=== PATIENT | female | born 1990 | race Caucasian/White ===

== ENCOUNTER 2020-04-19 20:53 | Outpatient (CLI) | payer MEDICAID ==
[2020-04-19 21:25] LABS: ABSOLUTE BASOPHILS # (AUTO) 0.1 10^3/uL (0.0-0.2); ABSOLUTE LYMPHOCYTES (AUTO) 4.3 10^3/uL (0.5-4.7); ABSOLUTE MONOCYTES (AUTO) 0.9 10^3/uL (0.1-1.4); ABSOLUTE NEUT (AUTO) 9.9 10^3/uL (1.7-8.2); BASOPHILS % (AUTO) 0.4 % (0-2); EOSINOPHILS % (AUTO) 0.3 % (0-6); HEMATOCRIT 35.3 % (36.0-47.0); HEMOGLOBIN 12.2 g/dL (12.0-15.5); LYMPHOCYTES % (AUTO) 28.5 % (13-45); MEAN CORPUSCULAR HEMOGLOBIN 31.9 pg (27.0-33.4); MEAN CORPUSCULAR HGB CONC 34.6 g/dL (32.0-36.0); MEAN CORPUSCULAR VOLUME 92 fl (80-97); MONOCYTES % (AUTO) 5.8 % (3-13); PLATELET COUNT 287 10^3/uL (150-450); RED BLOOD COUNT 3.82 10^6/uL (3.72-5.28); RED CELL DISTRIBUTION WIDTH 14.6 % (11.5-14.0); TOTAL CELLS COUNTED % (AUTO) 100 %; WHITE BLOOD COUNT 15.2 10^3/uL (4.0-10.5)
[2020-04-19 21:43] LABS: APPEARANCE,URINE SLIGHTLY-CLOUDY; BILIRUBIN,URINE NEGATIVE (NEGATIVE); CALCIUM OXALATE CRYSTALS,URINE MANY /HPF; COLOR,URINE YELLOW; GLUCOSE, URINE NEGATIVE (NEGATIVE); KETONES,URINE TRACE mg/dL (NEGATIVE); LEUKOCYTE ESTERASE,URINE NEGATIVE (NEGATIVE); NITRITE,URINE NEGATIVE (NEGATIVE); PROTEIN,URINE 30 mg/dL (NEGATIVE); URINE SPECIFIC GRAVITY 1.023; UROBILINOGEN,URINE NEGATIVE mg/dL (<2.0)
[2020-04-19 21:48] LABS: ALBUMIN 3.5 g/dL (3.5-5.0); ALKALINE PHOSPHATASE 103 U/L (38-126); ANION GAP 6 (5-19); ASPARTATE AMINO TRANSFERASE 32 U/L (14-36); BILIRUBIN,TOTAL 0.3 mg/dL (0.2-1.3); BLOOD UREA NITROGEN 6 mg/dL (7-20); CALCIUM 9.5 mg/dL (8.4-10.2); CARBON DIOXIDE 22 mmol/L (22-30); CHLORIDE 106 mmol/L (98-107); GLUCOSE 93 mg/dL (75-110); POTASSIUM 3.8 mmol/L (3.6-5.0); TOTAL PROTEIN 6.5 g/dL (6.3-8.2)
[2020-04-19 22:01] LABS: URINE AMPHETAMINES SCREEN NEGATIVE; URINE BARBITURATES SCREEN NEGATIVE; URINE BENZODIAZEPINES SCREEN NEGATIVE; URINE COCAINE SCREEN NEGATIVE; URINE MARIJUANA (THC) SCREEN NEGATIVE; URINE METHADONE SCREEN NEGATIVE; URINE PHENCYCLIDINE SCREEN NEGATIVE
[2020-04-19 22:03] LABS: UR PRO/CREAT RATIO RESULT 0.1 mg/mg (0.0-0.2); URINE PROTEIN 22.1 mg/dL (<12)
== END 2020-04-19 22:46 | disposition home or self-care (01) ==
LOC: LC 20:53
PROVIDERS: ATTEND Student in an Organized Health Care Education/Training Program
DX: O16.3 Unspecified maternal hypertension, third trimester (principal); Z3A.37 37 weeks gestation of pregnancy; Z87.891 Personal history of nicotine dependence
CPT/HCPCS: 36415; 59025; 80053; 80307; 81001; 82570; 83615; 84112; 84156; 84550; 85025

== ENCOUNTER 2020-04-23 11:39 | Outpatient (CLI) | payer MEDICAID ==
--- NOTE | 2020-04-23 11:57 | Non Stress Test Report ---
Non Stress Test Datetime Report Generated by CPN: 04/23/2020 11:57 DEMOGRAPHIC Test Number: 1 EGA NST: 37.2 INDICATION Indication for Study (NST) Other: labor check for preeclampsia workup URINE RESULTS Urine Protein, NST: Positive Urine Ketones - NST: Positive Urine Glucose - NST: Positive Urine Blood - NST: Negative MONITORING Monitor Explained: Monitor Explained; Test Explained; Patient Verbalized Understanding Time on Monitor: 04/19/2020 21:16 Time off Monitor: 04/19/2020 22:30 NST Duration: 74 NST INTERVENTIONS NST Interventions: PO Hydration Physician Notified NST: Dr. Saha BABY A: [id number] BABY A Movement : Present Contraction Frequency : irregular FHR Baseline : 125 Accelerations : 15X15 Decelerations : None Variability : Moderate 6-25bpm NST Review: Meets Criteria for Reactive NST NST Review and Verified By : Zari Faulkner RN NST REPORT Report Trigger: Send Report
--- NOTE | 2020-04-23 12:28 | Non Stress Test Report ---
Non Stress Test Datetime Report Generated by CPN: 04/23/2020 12:28 DEMOGRAPHIC EGA NST: 37.6 VITAL SIGNS Temperature - NST: 98.7 Pulse - NST: 62 RESP - NST: 18 NBPSYS NST: 121 NBPDIA NST: 58 MONITORING Monitor Explained: Monitor Explained; Test Explained; Patient Verbalized Understanding Time on Monitor: 04/23/2020 11:54 Time on Monitor: 04/23/2020 11:56 Time off Monitor: 04/23/2020 12:24 NST Duration: 30 NST INTERVENTIONS NST Interventions: PO Hydration; Reposition Patient Physician Notified NST: DrFrances Torres BABY A Movement : Present Movement : Present Contraction Frequency : 0 FHR Baseline : 125 Accelerations : 15X15 Accelerations : 15X15 Decelerations : None Decelerations : None Variability : Moderate 6-25bpm Variability : Moderate 6-25bpm NST Review: Meets Criteria for Reactive NST NST Review: Meets Criteria for Reactive NST NST Review and Verified By : R. Marhefka, RN NST Results: Reactive NST Results: Reactive NST REPORT Report Trigger: Send Report
== END 2020-04-23 12:56 | disposition home or self-care (01) ==
LOC: LC 11:39
PROVIDERS: ATTEND Obstetrics & Gynecology
DX: O24.419 Gestational diabetes mellitus in pregnancy, unspecified control (principal); Z3A.37 37 weeks gestation of pregnancy
CPT/HCPCS: 59025

== ENCOUNTER 2020-04-23 22:42 | Inpatient (IN) | payer MEDICAID ==
[2020-04-23] MEDS ORDERED: RINGERS SOLUTION,LACTATED 1,000 ML IV PRN (23:41)
[2020-04-23] MEDS ORDERED: RINGERS SOLUTION,LACTATED 1,000 ML IV ONE (23:41)
[2020-04-23] MEDS ORDERED: ACETAMINOPHEN 325 MG TABLET PO PRN (23:43)
[2020-04-23] MEDS ORDERED: ZOLPIDEM TARTRATE 5 MG TABLET PO PRN (23:43)
[2020-04-23] MEDS ORDERED: DINOPROSTONE 10 MG VAGINAL INSERT.SR PV ONE (23:43)
[2020-04-23] MEDS ORDERED: MAG HYDROX/AL HYDROX/SIMETH SUSP 30 ML UDCUP PO PRN (23:43)
[2020-04-23 23:46] LABS: APPEARANCE,URINE CLEAR; BILIRUBIN,URINE NEGATIVE (NEGATIVE); COLOR,URINE YELLOW; GLUCOSE, URINE NEGATIVE (NEGATIVE); KETONES,URINE TRACE mg/dL (NEGATIVE); LEUKOCYTE ESTERASE,URINE NEGATIVE (NEGATIVE); NITRITE,URINE NEGATIVE (NEGATIVE); PROTEIN,URINE NEGATIVE (NEGATIVE); URINE SPECIFIC GRAVITY 1.006; UROBILINOGEN,URINE NEGATIVE mg/dL (<2.0)
[2020-04-23] MEDS ORDERED: BUTALB/ACETAMINOPHEN/CAFFEINE 1 TAB EACH PO ONE (23:46)
--- NOTE | 2020-04-23 23:51 | Admission Physical ---
Datetime Report Generated by CPN: 04/23/2020 23:51 CURRENT ADMISSION Chief Complaint: Signs/Symptoms Gestational HTN Admit Impression : Term, Intrauterine ; Medical Complication Admit Impression- Other: Gestational hypertension at term-possible preeclampsia Admit Plan: Admit to Unit; Initiate Labor Induction Protocol ALLERGIES Medication Allergies: No Medication Allergies: No Known Allergies (04/20/2020) Latex: No Latex Allergies Food Allergies: denies Environmental Allergies: denies OBSTETRICAL HISTORY EDC: 05/08/2020 00:00 : 3 Para: 2 Term: 2 Livin Gestational Diabetes: Yes Rh Sensitization: No Incompetent Cervix: No HEIDI: No Infertility: No ART Treatment: No Uterine Anomaly: No IUGR: No Hx Previous C/S: No Macrosomia: No Hx Loss/Stillborn: No PIH: Yes Hx : No Placenta Previa/Abruption: No Depression/PP Depression: No PTL/PROM: No Post Hemorrhage: No Current Procedures: Ultrasound; NST Obstetrical History Comments: g1-2007, , 38 weeks, female, 6lb 13 oz, no complications g2-2010, , 39 weeks, female, 7lb 11oz, gdm, ghtn iol g3-current , 2 vessel cord with velamentous insertion, GDMA1, currently performing 24hr urine SEE RECORDS Alcohol: No Marijuana : No Cocaine: No Other Illicit Drugs: No Cigarettes: Former Smoker. [id number] MEDICAL HISTORY Diabetes: Yes Diabetes Type: Gestational Diabetes Blood Transfusion: No Pulmonary Disease (Asthma, TB): No Breast Disease: No Hypertension: Yes Lead Security Officer Surgery: No Heart Disease: No Hosp/Surgery: Yes Autoimmune Disorder: No Anesthetic Complications: No Kidney Disease: No Abnormal Pap Smear: No Neuro/Epilepsy: No Psychiatric Disorders: No Other Medical Diseases: No Hepatitis/Liver Disease: No Significant Family History: No Varicosities/Phlebitis: No Trauma/Violence : No Thyroid Dysfunction: No Medical History Comments: childbirth x2, gdma1 this , ghtn first , d_c to have uterine polyps removed, chronic headaches INFECTIOUS HISTORY Gonorrhea: No Genital Herpes: No Chlamydia: No Tuberculosis: No Syphilis: No Hepatitis: No HIV/AIDS Exposure: No Rash or Viral Illness: No HPV: No PHYSICAL EXAM General: Normal HEENT: Normal Neurologic: Normal Thyroid: Normal Heart: Normal Lungs: Normal Breast: Normal Back: Normal Abdomen: Normal Genitourinary Exam: Normal Extremities: Normal DTRs: Normal Pelvic Type: Adequate Vital Signs: Reviewed; Within Normal Limits VAGINAL EXAM Dilatation: 1 Effacement: 30 Station: -3 Contraction Comments: no regular contractions MEMBRANES Membranes: Intact FETUS A EGA: 37.6 Monitoring: External US FHR- Baseline: 130 Variability: Moderate 6-25bpm Accelerations: 15X15 Decelerations: None FHR Category: Category I Presentation: Vertex Admit Comment: at 37.6 wks EGA with gHTN at term, now with persistent VARGAS, possible Preeclampsia. further complicated by A1GDM, velementous cord insertion, 2 vessel cord -Elevated b/p now, but not severes. Continue to monitor -VARGAS, s/p tylenol iwth no relief. Will treat further -Admit to LDR for IOL d/t gHTN at term and possible preeclampsia -GBS negative -cervix . Will place cervidil -Call with severe range b/p with systolic > 160 or diastolic > 110 PLANS FOR LABOR AND DELIVERY Labor and Delivery: None Pain Management: Epidural Feeding Preference: Both Benefit of Breast Feed Discussed: Yes Circumcision: N/A INFORMED CONSENT Informed Consent Obtained: Vaginal Delivery; Section Delivery; Risks, Benefits and Alternatives Discussed Signature: with User ID: [email or web address] : with User ID: [email or web address]
[2020-04-24 00:01] LABS: URINE AMPHETAMINES SCREEN NEGATIVE; URINE BARBITURATES SCREEN NEGATIVE; URINE BENZODIAZEPINES SCREEN NEGATIVE; URINE COCAINE SCREEN NEGATIVE; URINE MARIJUANA (THC) SCREEN NEGATIVE; URINE METHADONE SCREEN NEGATIVE; URINE PHENCYCLIDINE SCREEN NEGATIVE
[2020-04-24 00:11] LABS: ABSOLUTE LYMPHOCYTES (AUTO) 4.3 10^3/uL (0.5-4.7); ABSOLUTE MONOCYTES (AUTO) 0.6 10^3/uL (0.1-1.4); BASOPHILS % (AUTO) 0.2 % (0-2); EOSINOPHILS % (AUTO) 0.3 % (0-6); HEMATOCRIT 34.2 % (36.0-47.0); HEMOGLOBIN 11.6 g/dL (12.0-15.5); LYMPHOCYTES % (AUTO) 30.8 % (13-45); MEAN CORPUSCULAR HEMOGLOBIN 31.5 pg (27.0-33.4); MEAN CORPUSCULAR HGB CONC 33.9 g/dL (32.0-36.0); MEAN CORPUSCULAR VOLUME 93 fl (80-97); MONOCYTES % (AUTO) 4.4 % (3-13); PLATELET COUNT 243 10^3/uL (150-450); RED BLOOD COUNT 3.68 10^6/uL (3.72-5.28); RED CELL DISTRIBUTION WIDTH 14.8 % (11.5-14.0); SEGMENTED NEUTROPHILS % (AUTO) 64.3 % (42-78); TOTAL CELLS COUNTED % (AUTO) 100 %
[2020-04-24 00:18] LABS: ALBUMIN 2.9 g/dL (3.5-5.0); ALKALINE PHOSPHATASE 92 U/L (38-126); ANION GAP 5 (5-19); ASPARTATE AMINO TRANSFERASE 32 U/L (14-36); BILIRUBIN,TOTAL 0.3 mg/dL (0.2-1.3); BLOOD UREA NITROGEN 5 mg/dL (7-20); CALCIUM 8.7 mg/dL (8.4-10.2); CARBON DIOXIDE 21 mmol/L (22-30); CHLORIDE 106 mmol/L (98-107); GLUCOSE 83 mg/dL (75-110); POTASSIUM 3.4 mmol/L (3.6-5.0); TOTAL PROTEIN 5.6 g/dL (6.3-8.2); URIC ACID 5.8 mg/dL (2.5-6.2)
[2020-04-24] MEDS ORDERED: BUTALB/ACETAMINOPHEN/CAFFEINE 1 TAB EACH ONE ×2 (01:27→07:32)
[2020-04-24] MEDS ORDERED: DINOPROSTONE 10 MG VAGINAL INSERT.SR ONE (01:27)
[2020-04-24] MEDS ORDERED: ONDANSETRON HCL INJ/PF 4 MG/2 ML SDV ONE (07:32)
[2020-04-24] MEDS ORDERED: BUTALB/ACETAMINOPHEN/CAFFEINE 1 TAB EACH PO ONE (07:32)
[2020-04-24] MEDS ORDERED: ONDANSETRON HCL INJ/PF 4 MG/2 ML SDV IV PRN (07:32)
[2020-04-24] MEDS ORDERED: MAGNESIUM SULFATE 4 GM/100 ML RTUPB IV ONE ×3 (07:34→07:55)
[2020-04-24] MEDS ORDERED: MAGNESIUM SULFATE 20 GM/500 ML RTUINJ IV PRN (07:35)
[2020-04-24] MEDS ORDERED: MAGNESIUM SULFATE 20 GM/500 ML RTUINJ IV ONE (07:55)
[2020-04-24 08:19] LABS: HEMATOCRIT 33.7 % (36.0-47.0); HEMOGLOBIN 11.5 g/dL (12.0-15.5); MEAN CORPUSCULAR HEMOGLOBIN 31.5 pg (27.0-33.4); MEAN CORPUSCULAR HGB CONC 34.1 g/dL (32.0-36.0); MEAN CORPUSCULAR VOLUME 93 fl (80-97); PLATELET COUNT 215 10^3/uL (150-450); RED BLOOD COUNT 3.63 10^6/uL (3.72-5.28); RED CELL DISTRIBUTION WIDTH 14.8 % (11.5-14.0); WHITE BLOOD COUNT 11.6 10^3/uL (4.0-10.5)
[2020-04-24 08:43] LABS: ALBUMIN 2.8 g/dL (3.5-5.0); ALKALINE PHOSPHATASE 93 U/L (38-126); ASPARTATE AMINO TRANSFERASE 33 U/L (14-36); BILIRUBIN,TOTAL 0.3 mg/dL (0.2-1.3); BLOOD UREA NITROGEN 4 mg/dL (7-20); CALCIUM 8.6 mg/dL (8.4-10.2); CARBON DIOXIDE 21 mmol/L (22-30); CHLORIDE 107 mmol/L (98-107); GLUCOSE 76 mg/dL (75-110); POTASSIUM 3.7 mmol/L (3.6-5.0); TOTAL PROTEIN 5.6 g/dL (6.3-8.2); URIC ACID 5.7 mg/dL (2.5-6.2)
[2020-04-24 09:00] LABS: ANION GAP 5 (5-19)
[2020-04-24] MEDS: MAGNESIUM SULFATE 20 GM/500 ML RTUINJ IV PRN (09:40)
[2020-04-24] MEDS ORDERED: FUROSEMIDE INJ/PF 20 MG/2 ML SDV IV ONE (10:02)
[2020-04-24] MEDS ORDERED: FUROSEMIDE INJ/PF 40 MG/4 ML SDV ONE (10:07)
--- NOTE | 2020-04-24 10:16 | L&D Progress Notes ---
PROGRESS NOTES Datetime Report Generated by CPN: 04/24/2020 10:15 PROGRESS NOTE Impression: Reassuring Heart Rate Plan: Cervical Ripening Informed Consent Obtained: Vaginal Delivery; Section Delivery; Risks, Benefits and Alternatives Discussed Vital Signs : Reviewed; Within Normal Limits Comment: Cervidil remains in, Cat 1 strip with irregular uc's VAGINAL EXAM Dilatation: 1 Effacement: 30 Station: -3 Contractions: no regular contractions LAST VAGINAL EXAM-NURSING Nursing Exam Dilitation: 2.0 Nursing Exam Effacement: 30 Nursing Exam Station: -3 Nursing Exam Contractions: irregular MEMBRANES Membranes: Intact FETUS A Monitoring: External US Variability: Moderate 6-25bpm Accelerations: 15X15 Decelerations: None FHR Category: Category I : 37.6 Presentation: Vertex SIGNATURE SIGNATURE: [id number];[id number] Assignment: Cristina Saha MD Signature: with User ID: [email or web address] : with User ID: [email or web address]
[2020-04-24] MEDS ORDERED: NALBUPHINE HCL INJ 10 MG/1 ML AMPULE ONE (10:29)
[2020-04-24] MEDS ORDERED: HYDRALAZINE HCL INJ/PF 20 MG/1 ML SDV ONE ×2 (11:07→12:14)
[2020-04-24] MEDS ORDERED: OXYTOCIN/0.9 % SODIUM CHLORIDE 30 UNIT/500 ML RTUINJ ONE (11:30)
[2020-04-24] MEDS ORDERED: OXYTOCIN 10 UNIT/ML VIAL ONE (11:30)
[2020-04-24] MEDS ORDERED: MISOPROSTOL 0.2 MG TABLET ONE (11:30)
[2020-04-24] MEDS ORDERED: LIDOCAINE 1% INJ-PF (10 MG/ML) 30 ML SDV ONE (11:30)
--- NOTE | 2020-04-24 13:36 | L&D Progress Notes ---
PROGRESS NOTES Datetime Report Generated by CPN: 04/24/2020 13:36 PROGRESS NOTE Impression: Reassuring Heart Rate Plan: Induction Informed Consent Obtained: Vaginal Delivery; Section Delivery; Risks, Benefits and Alternatives Discussed Vital Signs : Reviewed; Within Normal Limits Comment: pt on left side, no c/o, O2 sat 90-92, O2 at [address] Munoz, portable chest ordered, O2 off and pulse ox at 94, decleration while sitting up for x-ray, otherwise Cat 1 strip VAGINAL EXAM Dilatation: 1 Effacement: 30 Station: -3 Contractions: no regular contractions LAST VAGINAL EXAM-NURSING Nursing Exam Dilitation: 1.5 Nursing Exam Effacement: 60 Nursing Exam Station: -3 Nursing Exam Contractions: irregular MEMBRANES Membranes: Intact FETUS A Monitoring: External US Variability: Moderate 6-25bpm Accelerations: 15X15 Decelerations: None FHR Category: Category I : 37.6 Presentation: Vertex SIGNATURE SIGNATURE: [id number];[id number];[id number] Assignment: Cristina Saha MD Signature: with User ID: [email or web address] : with User ID: [email or web address]
--- NOTE | 2020-04-24 13:57 | RADIOLOGY REPORT (SQ) ---
EXAM DESCRIPTION: CHEST SINGLE VIEW IMAGES COMPLETED DATE/TIME: 04/24/2020 1:38 pm REASON FOR STUDY: decrease in oxygen level COMPARISON: None. EXAM PARAMETERS: NUMBER OF VIEWS: One view. TECHNIQUE: Single frontal radiographic view of the chest acquired. RADIATION DOSE: NA LIMITATIONS: None. FINDINGS: LUNGS AND PLEURA: No opacities, masses or pneumothorax. No pleural effusion. MEDIASTINUM AND HILAR STRUCTURES: No masses. Contour normal. HEART AND VASCULAR STRUCTURES: Heart normal in size. Normal vasculature. BONES: No acute findings. HARDWARE: None in the chest. OTHER: No other significant finding. IMPRESSION: NO ACUTE RADIOGRAPHIC FINDING IN THE CHEST. TECHNICAL DOCUMENTATION: JOB ID: [id number] 2010 [employer]- All Rights Reserved Reading location - IP/workstation name: [email or web address]
[2020-04-24] MEDS ORDERED: FENTANYL/BUPIVACAINE/NS/PF 300 MCG/150 ML RTUINJ EPI ONE (15:17)
[2020-04-24] MEDS ORDERED: EPHEDRINE SULFATE INJ 50 MG/1 ML AMPULE ONE (15:17)
[2020-04-24] MEDS ORDERED: BUPIVACAINE HCL 0.25 % INJ/PF (2.5 MG/1 ML) 30 ML VIAL ONE (15:17)
[2020-04-24] MEDS ORDERED: GLYCERIN/WITCH HAZEL LEAF 1 EACH MED..WIPE TP PRN (16:31)
[2020-04-24] MEDS ORDERED: PROMETHAZINE HCL 25 MG SUPP.RECT PR PRN (16:31)
[2020-04-24] MEDS ORDERED: ZOLPIDEM TARTRATE 5 MG TABLET PO PRN (16:31)
[2020-04-24] MEDS ORDERED: OXYTOCIN/0.9 % SODIUM CHLORIDE 30 UNIT/500 ML RTUINJ IV PRN (16:31)
[2020-04-24] MEDS ORDERED: DIBUCAINE 1% OINTMENT 28 GM TP PRN (16:31)
[2020-04-24] MEDS ORDERED: PROMETHAZINE HCL 25 MG TABLET PO PRN (16:31)
[2020-04-24] MEDS ORDERED: ACETAMINOPHEN 650 MG SUPP.RECT PR PRN (16:31)
[2020-04-24] MEDS ORDERED: MEASLES,MUMPS&RUBELLA VACC/PF 0.5 ML VIAL SUBCUT PRN (16:31)
[2020-04-24] MEDS ORDERED: BENZOCAINE/MENTHOL AEROSOL SPRAY 56 ML TOP PRN (16:31)
[2020-04-24] MEDS ORDERED: PSEUDOEPHEDRINE HCL 30 MG TABLET PO PRN (16:31)
[2020-04-24] MEDS ORDERED: NA PHOS,M-B/NA PHOS,DI-BA (ADULT) 133 ML ENEMA PR PRN (16:31)
[2020-04-24] MEDS ORDERED: ACETAMINOPHEN WITH CODEINE #3 TABLET PO PRN ×2 (16:31)
[2020-04-24] MEDS ORDERED: DIPH/PERTUSS(ACELL)/TETANUS VAC/PF 0.5 ML SYR (>=10YO) IM PRN (16:31)
[2020-04-24] MEDS ORDERED: PROMETHAZINE HCL INJ 25 MG/1 ML VIAL IV PRN (16:31)
[2020-04-24] MEDS ORDERED: DIPHENHYDRAMINE HCL 25 MG CAPSULE PO PRN (16:31)
[2020-04-24] MEDS ORDERED: MAGNESIUM HYDROXIDE SUSP 30 ML UDCUP PO PRN (16:31)
--- NOTE | 2020-04-24 18:24 | Delivery Summary ---
Del Sum A-C Datetime Report Generated by CPN: 04/24/2020 18:24 DELIVERY PERSONNEL DELIVERY PERSONNEL: [id number] Delivery Doctor:: Elis Lemons CNM Labor and Delivery Nurse:: Radha Zhu RNenvironmental health nurse Nurse:: Karrie Schilling RN Nursery Nurse:: Winnie Chacon RN Paper Products Inspector/PLASTER AND STUCCO WORKER: Britni Stuart, ST MATERNAL INFORMATION Delivery Anesthesia: Epidural Medications After Delivery: Pitocin 30 Units in 500ml NS/D5W Meds After Delivery Comment: Pitocin 30u in 500mls ns open bolus [id number] then 95mls/hr Delivery QBL: 100 Provider Comments: viable female without pushing from OA to ANGELICA over intact perineum, placed on mothers abdomen, nursery in attendance, cord clamped and cut after 2 minutes by FOB, spont delivery of grossly nl intact placenta, 2 VC, FFFM, masage and IV Pitocin, mom and baby remain in recovery on stable condition, continue Mag sulfate, Dr. Saha in room after delivery aware of pt status (Annotations: Data stored by N on behalf of user) LABOR SUMMARY EDC: 05/08/2020 00:00 No. Babies in Womb: 1 Labor Anesthesia: Epidural LABOR INFORMATION Reason for Induction: Pre-Eclampsia Onset of Labor: 04/24/2020 14:57 Complete Dilatation: 04/24/2020 16:11 Cervical Ripening Agents: Cervidil Oxytocin: Induction Group B Beta Strep: negative Steroids Given: None Reason Steroids Not Administered: Not Applicable MEMBRANES Membranes Rupture Method: Spontaneous Rupture of Membranes: 04/24/2020 14:57 Length of Rupture (hr): 1.32 Amniotic Fluid Color: Clear Amniotic Fluid Amount: Moderate Amniotic Fluid Odor: Normal STAGES OF LABOR Stage 1 hr: 1 Stage 1 min: 14 Stage 2 hr: 0 Stage 2 min: 5 Stage 3 hr: 0 Stage 3 min: 3 Total Time in Labor hr: 1 Total Time in Labor min: 22 VAGINAL DELIVERY Episiotomy: None Laceration #1: None Laceration Repair: Not Applicable Sponge Count Correct: N/A Sharps Count Correct: N/A CSECTION DELIVERY Primary Indication: N/A Secondary Indication: N/A CSection Incidence: N/A Labor: N/A Elective: N/A CSection Incision: N/A BABY A INFORMATION Delivery Date/Time: 04/24/2020 16:16 Method of Delivery: Vaginal Nurse Controlled Delivery: No Born in Route : No : N/A Forceps: N/A Vacuum Extraction: N/A Shoulder Dystocia : No PRESENTATION/POSITION BABY A Presentation: Cephalic Cephalic Presentation: Vertex Breech Presentation: N/A PLACENTA INFORMATION BABY A Placenta Delivery Time : 04/24/2020 16:19 Placenta Method of Delivery: Spontaneous Placenta Status: Delivered SCORES BABY A Heart Rate 1 min: >100 bpm Resp Effort 1 min: Good Cry Reflex Irritability 1 min: Cough or Sneeze or Pulls Away Muscle Tone 1 min: Active Motion Color 1 min: Blue/Pale Resuscitation Effort 1 min: Tactile Stimulation SCORE 1 MIN: 8 Heart Rate 5 min: >100 bpm Resp Effort 5 min: Good Cry Reflex Irritability 5 min: Cough or Sneeze or Pulls Away Muscle Tone 5 min: Active Motion Color 5 min: Body Bache, Extremities Blue SCORE 5 MIN: 9 INFANT INFORMATION BABY A Gestational Age at Delivery: 38.0 Gestational Status: Early Term- 37- 38.6 Weeks Outcome : Liveborn Condition : Stable Infant Sex: Female IDENTIFICATION BABY A Verification Date/Time: 04/24/2020 17:52 ID Band Number: [id number] Mother's Name Verified: Yes RN Verifying : Al Zhu, RN Additional Verifying Personnel: SFrances Schilling, RN WEIGHT/LENGTH BABY A Birthweight (gm): 2807 Weight (lb): 6 Weight (oz): 3 Length (in): 19.00 Length (cm): 48.26 CORD INFORMATION BABY A No. Cord Vessels: 2 Nuchal Cord : N/A Cord Blood Taken: Yes-For Storage (Mom's Blood type +) Infant Suction: None ASSESSMENT BABY A Skin to Skin: Yes Skin to Skin Time (min): 60 BABY B INFORMATION : N/A
[2020-04-24] MEDS ORDERED: FAMOTIDINE 20 MG TABLET ONE (21:59)
[2020-04-24] MEDS ORDERED: FERROUS SULFATE 325 MG TABLET PO ONE (21:59)
[2020-04-24] MEDS ORDERED: IBUPROFEN 800 MG TABLET ONE (21:59)
[2020-04-24] MEDS ORDERED: DOCUSATE SODIUM 100 MG CAPSULE ONE (21:59)
[2020-04-24] MEDS: DOCUSATE SODIUM 100 MG CAPSULE PO SCH (22:03)
[2020-04-24] MEDS: FERROUS SULFATE 325 MG TABLET PO SCH (22:03)
[2020-04-24] MEDS: IBUPROFEN 800 MG TABLET PO SCH (22:03)
[2020-04-24] MEDS: FAMOTIDINE 20 MG TABLET PO SCH (22:04)
[2020-04-25] MEDS ORDERED: MAGNESIUM SULFATE 20 GM/500 ML RTUINJ IV ONE (00:57)
[2020-04-25] MEDS: MAGNESIUM SULFATE 20 GM/500 ML RTUINJ IV PRN (01:02)
[2020-04-25] MEDS ORDERED: IBUPROFEN 800 MG TABLET ONE (07:10)
[2020-04-25] MEDS ORDERED: FUROSEMIDE INJ/PF 40 MG/4 ML SDV ONE (07:12)
[2020-04-25] MEDS ORDERED: NIFEDIPINE 30 MG TAB.ER.24 PO ONE (07:12)
[2020-04-25] MEDS: IBUPROFEN 800 MG TABLET PO SCH ×3 (07:15→22:07)
--- NOTE | 2020-04-25 07:21 | PDOC PROGRESS REPORT ---
Subjective-OB Progress Note for:: 04/25/20 Subjective: doing well. She has been on magnesium since delivery. good diuresis. no SOB, no VARGAS/blurry vision/RUQ pain Physical Exam (OB) Vital Signs: Intake & Output 04/24/20 04/25/20 04/26/20 06:59 06:59 06:59 Intake Total 384 Balance 384 Weight 103.9 kg - PIH/Pre-Eclampsia DTR's: 1 + Clonus: Negative Headache: Absent Epigastric Pain: No Visual Changes: No PIH/Pre-Eclampsia Note: will discontinue mag - Lochia Lochia Amount: Moderate 25-50 ml Lochia Color: Rubra/Red - Abdomen Description: Soft Hernia Present: No Bowel Sounds: Normoactive Flatus Presence: Absent Stool: No Fundal Description: Firm Fundal Height: u/u - u/2 Objective-Diagnostic Laboratory: 04/24/20 08:12 04/24/20 08:12 04/24/20 04/24/20 08:12 08:12 WBC 11.6 H RBC 3.63 L Hgb 11.5 L Hct 33.7 L MCV 93 MCH 31.5 MCHC 34.1 RDW 14.8 H Plt Count 215 Sodium 132.3 L Potassium 3.7 Chloride 107 Carbon Dioxide 21 L Anion Gap 5 BUN 4 L Creatinine 0.48 L Est GFR ( Amer) > 60 Glucose 76 Uric Acid 5.7 Calcium 8.6 Total Bilirubin 0.3 AST 33 Alkaline Phosphatase 93 Total Protein 5.6 L Albumin 2.8 L - Radiology Xray Date: 04/24/20 Note: negative Assessment and Plan(PN) - Assessment and Plan (1) Vaginal delivery Is this a current diagnosis for this admission?: Yes Plan: Routine pp care (2) Pre-eclampsia Is this a current diagnosis for this admission?: Yes Plan: discontinue mag, give 1 dose of IV lasix. Begin procardia. - Time Spent with Patient Time with patient: Less than 15 minutes Medications reviewed and adjusted accordingly: Yes - Disposition Anticipated Discharge: Home Within: within 72 hours
[2020-04-25] MEDS ORDERED: FUROSEMIDE INJ/PF 40 MG/4 ML SDV IV ONE (07:30)
[2020-04-25 07:39] LABS: HEMATOCRIT 31.1 % (36.0-47.0); HEMOGLOBIN 10.6 g/dL (12.0-15.5); MEAN CORPUSCULAR HEMOGLOBIN 31.8 pg (27.0-33.4); MEAN CORPUSCULAR VOLUME 93 fl (80-97); PLATELET COUNT 198 10^3/uL (150-450); RED BLOOD COUNT 3.32 10^6/uL (3.72-5.28); RED CELL DISTRIBUTION WIDTH 14.8 % (11.5-14.0)
[2020-04-25] MEDS: NIFEDIPINE 30 MG TAB.ER.24 PO SCH (08:00)
[2020-04-25] MEDS: PRENATAL VITAMIN W DHA CAPSULE PO SCH (11:33)
[2020-04-25] MEDS: FERROUS SULFATE 325 MG TABLET PO SCH ×2 (11:33→17:20)
[2020-04-25] MEDS: FAMOTIDINE 20 MG TABLET PO SCH ×2 (11:33→22:07)
[2020-04-25] MEDS: DOCUSATE SODIUM 100 MG CAPSULE PO SCH (11:33)
[2020-04-25] MEDS: SENNOSIDES/DOCUSATE 8.6-50 MG 1 EACH TABLET PO SCH (11:34)
[2020-04-26] MEDS: IBUPROFEN 800 MG TABLET PO SCH (06:02)
[2020-04-26] MEDS: DOCUSATE SODIUM 100 MG CAPSULE PO SCH ×2 (09:16→09:35)
[2020-04-26] MEDS: FERROUS SULFATE 325 MG TABLET PO SCH (09:35)
[2020-04-26] MEDS: SENNOSIDES/DOCUSATE 8.6-50 MG 1 EACH TABLET PO SCH (09:35)
[2020-04-26] MEDS: PRENATAL VITAMIN W DHA CAPSULE PO SCH (09:35)
[2020-04-26] MEDS: FAMOTIDINE 20 MG TABLET PO SCH (09:35)
[2020-04-26] MEDS: NIFEDIPINE 30 MG TAB.ER.24 PO SCH (09:37)
[2020-04-26 11:16] VITALS: BP 154/89
--- NOTE | 2020-04-26 11:19 | PDOC DISCHARGE SUMMARY ---
Impression - Admit/DC Date/PCP Admission Date/Primary Care Provider: 04/23/20 23:36 YADIRA DIAZ MD Discharge Date: 04/26/20 - Discharge Diagnosis (1) Pre-eclampsia Is this a current diagnosis for this admission?: Yes (2) Vaginal delivery Is this a current diagnosis for this admission?: Yes - Additional Information Resuscitation Status: Full Code Discharge Diet: Regular Discharge Activity: Balance Activity w/Rest, No Lifting Over 10 Pounds, Pelvic Rest, No tub bath Referrals: YADIRA DIAZ MD [Primary Care Provider] - Prescriptions: Ibuprofen [Motrin 800 mg Tablet] 800 mg PO Q8HP PRN #60 tablet PRN Reason: Nifedipine [Procardia XL 30 mg Tablet] 30 mg PO QAM #30 tab.er.24 Home Medications: Pnv No.95/Ferrous Fum/Folic AC [ Vitamins Tablet] 1 each PO DAILY 04/20/20 Ibuprofen [Motrin 800 mg Tablet] 800 mg PO Q8HP PRN #60 tablet 04/26/20 Nifedipine [Procardia XL 30 mg Tablet] 30 mg PO QAM #30 tab.er.24 04/26/20 HPI Gestational Age: 37 Reason(s) for Admission: Induction of Labor, Obstetric Complications, PIH Procedures: NST Intrapartum Procedure(s): Spontaneous Vaginal Delivery Results Laboratory Results: WBC 12.0 10^3/uL (4.0-10.5) H 04/25/20 07:09 RBC 3.32 10^6/uL (3.72-5.28) L 04/25/20 07:09 Hgb 10.6 g/dL (12.0-15.5) L 04/25/20 07:09 Hct 31.1 % (36.0-47.0) L 04/25/20 07:09 MCV 93 fl (80-97) 04/25/20 07:09 MCH 31.8 pg (27.0-33.4) 04/25/20 07:09 MCHC 34.0 g/dL (32.0-36.0) 04/25/20 07:09 RDW 14.8 % (11.5-14.0) H 04/25/20 07:09 Plt Count 198 10^3/uL (150-450) 04/25/20 07:09 Lymph % (Auto) 30.8 % (13-45) 04/23/20 23:51 Roberts % (Auto) 4.4 % (3-13) 04/23/20 23:51 Eos % (Auto) 0.3 % (0-6) 04/23/20 23:51 Baso % (Auto) 0.2 % (0-2) 04/23/20 23:51 Absolute Neuts (auto) 9.0 10^3/uL (1.7-8.2) H 04/23/20 23:51 Absolute Lymphs (auto) 4.3 10^3/uL (0.5-4.7) 04/23/20 23:51 Absolute Monos (auto) 0.6 10^3/uL (0.1-1.4) 04/23/20 23:51 Absolute Eos (auto) 0.0 10^3/uL (0.0-0.6) 04/23/20 23:51 Absolute Basos (auto) 0.0 10^3/uL (0.0-0.2) 04/23/20 23:51 Seg Neutrophils % 64.3 % (42-78) 04/23/20 23:51 Sodium 132.3 mmol/L (137-145) L 04/24/20 08:12 Potassium 3.7 mmol/L (3.6-5.0) 04/24/20 08:12 Chloride 107 mmol/L (98-107) 04/24/20 08:12 Carbon Dioxide 21 mmol/L (22-30) L 04/24/20 08:12 Anion Gap 5 (5-19) 04/24/20 08:12 BUN 4 mg/dL (7-20) L 04/24/20 08:12 Creatinine 0.48 mg/dL (0.52-1.25) L 04/24/20 08:12 Est GFR ( Amer) > 60 (>60) 04/24/20 08:12 Est GFR (MDRD) Non-Af > 60 (>60) 04/24/20 08:12 Glucose 76 mg/dL (75-110) 04/24/20 08:12 Uric Acid 5.7 mg/dL (2.5-6.2) 04/24/20 08:12 Calcium 8.6 mg/dL (8.4-10.2) 04/24/20 08:12 Total Bilirubin 0.3 mg/dL (0.2-1.3) 04/24/20 08:12 Direct Bilirubin 0.0 mg/dL (0.0-0.4) 04/24/20 08:12 Neonat Total Bilirubin Not Reportable 04/24/20 08:12 Neonat Direct Bilirubin Not Reportable 04/24/20 08:12 Neonat Indirect Bili Not Reportable 04/24/20 08:12 AST 33 U/L (14-36) 04/24/20 08:12 ALT 14 U/L (<35) 04/24/20 08:12 Alkaline Phosphatase 93 U/L (38-126) 04/24/20 08:12 Lactate Dehydrogenase 133 U/L (120-246) 04/24/20 08:12 Total Protein 5.6 g/dL (6.3-8.2) L 04/24/20 08:12 Albumin 2.8 g/dL (3.5-5.0) L 04/24/20 08:12 Urine Color YELLOW 04/23/20 22:50 Urine Appearance CLEAR 04/23/20 22:50 Urine pH 6.0 (5.0-9.0) 04/23/20 22:50 Ur Specific [place] 1.006 04/23/20 22:50 Urine Protein NEGATIVE mg/dL (NEGATIVE) 04/23/20 22:50 Urine Glucose (UA) NEGATIVE mg/dL (NEGATIVE) 04/23/20 22:50 Urine Ketones TRACE mg/dL (NEGATIVE) H 04/23/20 22:50 Urine Blood NEGATIVE (NEGATIVE) 04/23/20 22:50 Urine Nitrite NEGATIVE (NEGATIVE) 04/23/20 22:50 Urine Bilirubin NEGATIVE (NEGATIVE) 04/23/20 22:50 Urine Urobilinogen NEGATIVE mg/dL (<2.0) 04/23/20 22:50 Ur Leukocyte Esterase NEGATIVE (NEGATIVE) 04/23/20 22:50 Urine Ascorbic Acid NEGATIVE (NEGATIVE) 04/23/20 22:50 Urine Opiates Screen NEGATIVE 04/23/20 22:50 Urine Methadone Screen NEGATIVE 04/23/20 22:50 Ur Barbiturates Screen NEGATIVE 04/23/20 22:50 Ur Phencyclidine Scrn NEGATIVE 04/23/20 22:50 Ur Amphetamines Screen NEGATIVE 04/23/20 22:50 U Benzodiazepines Scrn NEGATIVE 04/23/20 22:50 Urine Cocaine Screen NEGATIVE 04/23/20 22:50 U Marijuana (THC) Screen NEGATIVE 04/23/20 22:50 RPR NONREACTIVE (NONREACTIVE) 04/23/20 23:51 Blood Type B POSITIVE 04/23/20 23:51 Antibody Screen NEGATIVE 04/23/20 23:51 Impressions: Chest X-Ray 04/24/20 00:00 IMPRESSION: NO ACUTE RADIOGRAPHIC FINDING IN THE CHEST. Plan Plan of Treatment: f/u at [facility] next week for BP check, monitor bp at home, call if SBP >160, DBP >100 or if headache not resolved with tylenol, vision changes or epigastric pain Time Spent: Less than 30 Minutes
== END 2020-04-26 14:18 | disposition home or self-care (01) | DRG 807 ==
LOC: LC 22:42 → LR 23:36 → 2N 04-25 09:57
PROVIDERS: ADMIT Obstetrics & Gynecology; ATTEND Obstetrics & Gynecology
PROC: 10E0XZZ Delivery of Products of Conception, External Approach (ICD-10-PCS; principal; 2020-04-24)
PROC: 3E033VJ Introduction of Other Hormone into Peripheral Vein, Percutaneous Approach (ICD-10-PCS; 2020-04-24)
DX: O14.14 Severe pre-eclampsia complicating childbirth (principal); Z37.0 Single live birth; O14.94 Unspecified pre-eclampsia, complicating childbirth; Z3A.38 38 weeks gestation of pregnancy; Z87.891 Personal history of nicotine dependence
CPT/HCPCS: 1967; 36415; 71045; 80053; 80307; 81005; 83615; 84550; 85025; 85027; 86592; 86850; 86900; 86901; 88307; C1726; C1758; J0360; J1940; J2300; J2405; J2590; J3010; J3475; J3490